=== PATIENT | female | born 1985 | race Caucasian/White ===

== ENCOUNTER 2017-02-25 15:59 | Emergency (ER) | payer OTHER ==
[2017-02-25] MEDS ORDERED: ONDANSETRON 4 MG/2 ML VIAL IVP STA (16:30)
[2017-02-25] MEDS ORDERED: SODIUM CHLORIDE 0.9% 2,000 ML IV ONE (16:30)
--- NOTE | 2017-02-25 16:34 | ED ---
Abdominal Pain HPI - General Chief Complaint: Abdominal Pain Stated Complaint: vomiting Time Seen by Provider: 02/25/17 16:18 Source: patient Mode of arrival: ambulatory Limitations: no limitations - History of Present Illness Initial Comments: patient is a 32-year-old female who presents with chief complaint of nausea and vomiting for 3 days. The patient states that she began feeling sick on the night of the . Since then she has been throwing up pretty consistently every hour. Patient has been unable to eat or drink. Patient states that she is urinated 3 times in the last 2 days.patient cannot identify any inciting incidences. There are no aggravating or alleviating factors. Timing is constant. Patient states that she had her tubes tied 10 years ago. She does not have any other significant medical history. No other complaints today - Related Data Previous Rx's Medication Instructions Recorded Ondansetron Odt [Zofran Odt] 4 mg PO Q8HR PRN #20 tab 02/25/17 Allergies Allergy/AdvReac Type Severity Reaction Status Date / Time sulfamethoxazole Allergy Rash/Hives Verified 02/25/17 16:15 [From Bactrim] trimethoprim [From Bactrim] Allergy Rash/Hives Verified 02/25/17 16:15 Review of Systems ROS Statement: Those systems with pertinent positive or pertinent negative responses have been documented in the HPI. ROS Other: All systems not noted in ROS Statement are negative. Constitutional: Denies: fever Eyes: Denies: vision change ENT: Denies: ear pain, throat pain Respiratory: Denies: cough Cardiovascular: Denies: chest pain Endocrine: Denies: fatigue Gastrointestinal: Reports: nausea, vomiting. Denies: abdominal pain Genitourinary: Denies: dysuria Musculoskeletal: Denies: back pain Skin: Denies: rash, lesions Neurological: Denies: headache Past Medical History Past Medical History: Asthma Additional Past Medical History / Comment(s): hypothyroidism History of Any Multi-Drug Resistant Organisms: None Reported Past Surgical History: Tubal Ligation Additional Past Surgical History / Comment(s): tubal Past Psychological History: ADD/ADHD, Anxiety, Depression Smoking Status: Current every day smoker Past Alcohol Use History: None Reported Past Drug Use History: Marijuana General Exam Limitations: no limitations General appearance: alert, in no apparent distress Head exam: Present: atraumatic, normocephalic Eye exam: Present: normal appearance ENT exam: Present: mucous membranes dry Respiratory exam: Present: normal lung sounds bilaterally Cardiovascular Exam: Present: regular rate, normal rhythm GI/Abdominal exam: Present: soft. Absent: distended, tenderness Rectal exam: Present: deferred Back exam: Absent: CVA tenderness (R), CVA tenderness (L) Neurological exam: Present: alert, oriented X3 Psychiatric exam: Present: normal affect, normal mood Skin exam: Present: warm, dry, intact, pallor Course Vital Signs 02/25/17 02/25/17 16:06 17:48 Temperature 97.1 F L 98.2 F Pulse Rate 68 61 Respiratory 18 18 Rate Blood Pressure 140/85 135/73 O2 Sat by Pulse 100 100 Oximetry Medical Decision Making - Medical Decision Making they presents with a chief complaint of nausea and vomiting 3 days. Patient will be medicated with Zofran, and given 2 L of IV fluid. We'll check basic labs to evaluate electrolytes and white blood cell count. 5:25 PM Lab evaluation the patient is unremarkable. electrolytes appear to be within normal limits, there is no elevation of white count. patient states she feels better after dose of Zofran, Reglan and Benadryl and IV fluids. At this time, patient is stable for discharge. Dizziness wasn't signs and symptoms that should probably return visit to the emergency department. Otherwise she is instructed to follow-up with her primary care physician or return to the emergency department. - Lab Data Result diagrams: 02/25/17 16:43 02/25/17 16:43 Lab Results 02/25/17 02/25/17 Range/Units 16:43 16:43 WBC 8.8 (3.8-10.6) k/uL RBC 4.29 (3.80-5.40) m/uL Hgb 12.1 (11.4-16.0) gm/dL Hct 35.9 (34.0-46.0) % MCV 83.7 (80.0-100.0) fL MCH 28.1 (25.0-35.0) pg MCHC 33.5 (31.0-37.0) g/dL RDW 14.1 (11.5-15.5) % Plt Count 399 (150-450) k/uL Neutrophils % 81 % Lymphocytes % 14 % Monocytes % 3 % Eosinophils % 1 % Basophils % 0 % Neutrophils # 7.1 (1.3-7.7) k/uL Lymphocytes # 1.2 (1.0-4.8) k/uL Monocytes # 0.3 (0-1.0) k/uL Eosinophils # 0.1 (0-0.7) k/uL Basophils # 0.0 (0-0.2) k/uL Sodium 138 (137-145) mmol/L Potassium 3.8 (3.5-5.1) mmol/L Chloride 103 (98-107) mmol/L Carbon Dioxide 26 (22-30) mmol/L Anion Gap 9 mmol/L BUN 13 (7-17) mg/dL Creatinine 0.60 (0.52-1.04) mg/dL Est GFR (MDRD) Af Amer >60 (>60 ml/min/1.73 sqM) Est GFR (MDRD) Non-Af >60 (>60 ml/min/1.73 sqM) Glucose 131 H (74-99) mg/dL Calcium 9.7 (8.4-10.2) mg/dL Total Bilirubin 0.2 (0.2-1.3) mg/dL AST 18 (14-36) U/L ALT 20 (9-52) U/L Alkaline Phosphatase 55 (38-126) U/L Total Protein 7.3 (6.3-8.2) g/dL Albumin 4.5 (3.5-5.0) g/dL Lipase 174 (23-300) U/L Disposition Clinical Impression: Nausea and vomiting Disposition: HOME SELF-CARE Condition: Good Prescriptions: Ondansetron Odt [Zofran Odt] 4 mg PO Q8HR PRN #20 tab PRN Reason: Nausea Referrals: Odalis Gil MD [Primary Care Provider] - 1-2 days
[2017-02-25 17:06] LABS: ALT 20 U/L (9-52); AST 18 U/L (14-36); Alkaline Phosphatase 55 U/L (38-126); Anion Gap 9 mmol/L; Basophils % (A) 0 %; Blood Urea Nitrogen 13 mg/dL (7-17); CH 28.5; CHCM 34.2; Calcium 9.7 mg/dL (8.4-10.2); Carbon Dioxide 26 mmol/L (22-30); Chloride 103 mmol/L (98-107); Eosinophils # (A) 0.1 k/uL (0-0.7); Eosinophils % (A) 1 %; Glucose 131 mg/dL (74-99); HCT 35.9 % (34.0-46.0); HDW 2.41; HGB 12.1 gm/dL (11.4-16.0); Luc # (Auto) 0.09; Luc % (Auto) 1; Lymphocytes # (A) 1.2 k/uL (1.0-4.8); Lymphocytes % (A) 14 %; MCH 28.1 pg (25.0-35.0); MCHC 33.5 g/dL (31.0-37.0); MCV 83.7 fL (80.0-100.0); Mean Platelet Volume 7.2; Monocytes # (A) 0.3 k/uL (0-1.0); Monocytes % (A) 3 %; Neutrophils # (A) 7.1 k/uL (1.3-7.7); Neutrophils % (A) 81 %; Non-African American GFR(MDRD) >60 (>60 ml/min/1.73 sqM); Potassium 3.8 mmol/L (3.5-5.1); RBC 4.29 m/uL (3.80-5.40); RDW 14.1 % (11.5-15.5); Sodium 138 mmol/L (137-145); Total Bilirubin 0.2 mg/dL (0.2-1.3); Total Protein 7.3 g/dL (6.3-8.2); WBC 8.8 k/uL (3.8-10.6); WBC (Perox) 9.05
[2017-02-25] MEDS ORDERED: METOCLOPRAMIDE 5 MG/ML 2 ML VIAL IVP STA (17:29)
[2017-02-25] MEDS ORDERED: diphenhydrAMINE 50 MG/ML 1 ML VIAL IVP STA (17:29)
[2017-02-25 17:49] VITALS: TEMP 98.2
[2017-02-25 18:45] VITALS: BP 136/99; PULSE 73; RESP 16
== END 2017-02-25 18:45 | disposition home or self-care (01) ==
LOC: EC 15:59
DX: R11.2 Nausea with vomiting, unspecified (principal); R10.9 Unspecified abdominal pain; F17.200 Nicotine dependence, unspecified, uncomplicated; Z98.51 Tubal ligation status; Z88.2 Allergy status to sulfonamides
CPT/HCPCS: 36415; 80053; 83690; 85025; 99284; 96374; 96375 ×2; 96361 ×2; J1200; J2765; J2405